=== PATIENT | male | born 1995 | race African-American/Black ===

== ENCOUNTER 2022-06-15 01:14 | Emergency (ER) | payer BC, OTHER ==
[2022-06-15 01:18] VITALS: BP 132/78; PULSE 80; RESP 18; TEMP 98.6; BMI 36.9
[2022-06-15] MEDS ORDERED: IBUPROFEN 600 MG TABLET (FP) PO ONE ×2 (02:38→02:40)
== END 2022-06-15 02:53 | disposition home or self-care (01) ==
LOC: FER 01:14
DX: R05.1 Acute cough (principal); R09.81 Nasal congestion; J02.9 Acute pharyngitis, unspecified; R51.9 Headache, unspecified
CPT/HCPCS: 0241U-QW; 99283-25

== ENCOUNTER 2022-06-29 20:55 | Emergency (ER) | payer OTHER ==
[2022-06-29 21:04] VITALS: BP 128/77; PULSE 80; RESP 16; TEMP 98.9
[2022-06-29 21:10] VITALS: BMI 36.9
[2022-06-29] MEDS ORDERED: AZITHROMYCIN 250 MG TABLET PO STA (21:49)
[2022-06-29] MEDS ORDERED: AZITHROMYCIN 250 MG TABLET ONE (21:52)
== END 2022-06-29 21:57 | disposition home or self-care (01) ==
LOC: FER 20:55
DX: J18.9 Pneumonia, unspecified organism (principal)
CPT/HCPCS: 71046-TC-FY; 99283-25